=== PATIENT | male | born 1990 | race Two or more races ===

== ENCOUNTER 2024-04-19 13:25 | Emergency (ER) | payer MEDICAID, SELFPAY ==
[2024-04-19 13:32] VITALS: BP 139/85; PULSE 100; RESP 16; TEMP 37; O2SAT 98; BMI 37.3
--- NOTE | 2024-04-19 13:37 | ED_ITS ---
HPI - General Adult General Chief complaint: Extremity Problem Stated complaint: Rt elbow swelling/pain Time Seen by Provider: 04/19/24 13:35 Source: patient Mode of arrival: ambulatory Limitations: no limitations History of Present Illness ED Provider: Reilly Yancey PA-C HPI narrative: 34 yold healthy male presents to the ED for right elbow swelling. patient denies injury. patient states has been occuring for a week. Patient states no fever, chills, nausea, vomiting, elbow stiffness, swelling, recent travel, recent surgery, or any history of any blood clots. Related Data Previous Rx's ?Medication ?Instructions ?Recorded naproxen 500 mg tablet 500 mg PO BID PRN pain 7 days #14 04/19/24 tabs prednisone 20 mg tablet 40 mg (2 x 20 mg) PO DAILY 5 days 04/19/24 #10 tabs Allergies Allergy/AdvReac Type Severity Reaction Status Date / Time No Known Allergies Allergy Verified 04/19/24 13:34 Review of Systems 2 Review of Systems: RIght elbow swelling Yes all other systems are reviewed and are negative [facility] Social History Social History Advance Directives: No Advance Directives Information Provided: Yes Physical Exam ED Vital Signs: Vital Signs - 24 hr 04/19/24 13:32 04/19/24 13:59 Temperature 98.6 F 98.6 F Pulse Rate 100 100 Respiratory Rate 16 16 Blood Pressure 139/85 139/85 Pulse Oximetry 98 98 Oxygen Delivery Method Room Air Room Air BMI result Body Mass Index 37.3 Const General: cooperative, healthy appearing, comfortable, no acute distress, well developed, alert, awake and Physically active Orientation/consciousness: patient oriented x3 HENMT Head: Yes normal to inspection, Yes No palpable skull fracture present, Yes normocephalic and Yes atraumatic Eyes General: appearance normal, both eyes and all related structures Neck Neck: Yes normal visual inspection, Yes full ROM, Yes no lymphadenopathy, Yes no meningeal signs, Yes trachea midline, Yes supple, No anterior neck swelling and No tender Chest Chest palpation & inspection: normal inspection of the chest and normal palpation of entire chest wall Resp Effort & Inspection: normal respiratory effort and able to speak in complete sentences Auscultation: clear to auscultation bilaterally Cardio Jugular venous distension: no JVD Heart sounds: S1 normal heart sound present and S2 normal heart sound present GI Inspection: Yes normal to inspection and No abdominal wall ecchymosis Palpation (GI): Soft to palpation, not firm, nontender, no guarding and not rigid General: No CVA tenderness and Yes no CVA tenderness Back/Spine/Pelvis Back: no CVA tenderness, No CVA tenderness and No back tenderness Skin General skin exam: no rashes or lesions noted, elasticity normal and turgor normal Neuro General: patient oriented x3, gait normal, tone normal, moves all extremities, Normal light touch and pain sensation, no meningeal signs, no focal motor deficits, CN's II-XI intact bilaterally and normal sensation to monofilament Extrem General: Yes normal to inspection, Yes full ROM and Yes capillary refill normal Elbow/forearm/wrist images: 2 1. positive for swollen lump that is fluid filled without any redness, warmth, coldness, deformity, or tenderness. negative for elbow stiffness. Rest of extremity normal. motor, neuro, or vascular exam is intact. Psych Appearance: grossly normal, well kempt and not disheveled Medical Decision Making Medical Decision Making MDM Narrative: 34 yold male presents to the ED for right elbow swelling without any trauma. Patient denies any fever, chills, arm swelling, chest pain, shortness of breath, bluish discoloration, redness. Physical exam negative for signs of DVT, septic joint, gout, fracture, DVT, cellulitis, compartment syndrome, or arterial occlusion. Patient is educated on cold warm compression on area, resting, compression sleeve Jonnathan bandage, and naproxen steroid use. Patient informed to follow up primary care provider Differential Diagnosis Differential Diagnoses: The differential diagnosis associated with the presentation includes (Gout, septic joint, fracture, bursitis) Admission/Observation Consideration of admission/observation: Escalation of care including admission/observation considered Independent Historian Clinical information obtained from an independent historian. History obtained from or confirmed by: Spouse () and Other (patient) External Record Review External record reviewed: Other (prior viists) Discharge Plan Discharge Clinical Impression: Bursitis Patient Disposition: Home, Self-Care Instructions: Elbow Bursitis (ED) Additional Instructions: Return to the ED immediately for elbow stiffness, increased swelling, redness, warmth, pus discharge, foul odor, whole extremity swelling, red streaks, bluish black discoloration, hotness, coldness, chest pain, shortness of breath, or any other concerning symptoms. Recommend follow-up with primary care provider. Alternate between warm and cool compress of elbow. Recommend using Jonnathan bandage and elbow/arm sleeve with padding/cushion. Prescriptions: New naproxen 500 mg tablet 500 mg PO BID PRN (Reason: pain) 7 Days Qty: 14 0RF prednisone 20 mg tablet 40 mg PO DAILY 5 Days Qty: 10 0RF Referrals: [facility] [place] [facility] [Provider Group] (right elbow burisitis) Stand Alone Forms: Work/School Release Interventions: ED Discharge Assessment Last Done: 04/19/24 13:59 Discharge Date/Time: 04/19/24 14:01 Print Language: Nicaraguan
[2024-04-19 13:59] VITALS: BP 139/85; PULSE 100; RESP 16; TEMP 37; O2SAT 98
== END 2024-04-19 14:01 | disposition home or self-care (01) ==
PROVIDERS: Emergency Provider Emergency Medicine
DX: M70.31 Other bursitis of elbow, right elbow (principal)
CPT/HCPCS: 99282

== ENCOUNTER 2024-05-22 08:18 | Outpatient (AMB) | payer MEDICAID, SELFPAY ==
--- NOTE | 2024-05-22 08:19 | A.OFFVIS_ITS ---
Vital Signs 05/22/24 08:20 Height 5 ft 10 in Weight 260 lb BMI 37.3 Intake Visit Reasons: [employer]- ED f/u Right Elbow Bursitis Intake Note: Rose is a 34 year old right hand dominant male who presents today as a new patient for an ED follow up for his right elbow pain and swelling. Patient was given Naproxen for the symtoms. Allergies No Known Allergies Allergy (Verified 05/22/24 08:23) HPI HPI [employer]- ED f/u Right Elbow Bursitis: Details: Patient is a 34-year-old male who presents for evaluation of right elbow swelling, ongoing for approximately 1-2 months. The patient states that no particular trauma or incident started this swelling. The patient states that the swelling is painless, but that it feels like there is a water balloon attached to his elbow. Patient denies any redness, pain, or burning on the outer aspect of the right elbow. The patient does state that the swelling goes up and down depending on the day. No numbness or tingling in the right upper extremity. No other acute complaints or concerns at this time. Physical Exam Vital Signs: BMI result Body Mass Index 37.3 Extrem Other: Patient is alert, oriented, and in no acute distress. Neuro: Normal sensation of the tips of all digits of the right hand at this time Vascular: Cap refill brisk Pain: No tenderness to palpation of the radial head, medial epicondyle, lateral epicondyle, or in the area of swelling over the olecranon process of the right elbow ROM: Patient is able to flex and extend the right elbow fully without difficulty Pronation and supination of the right wrist full and intact Skin: No lacerations or abrasions. General: There is noted to be a large, fluid-filled area of swelling over the right olecranon process No warmth palpation No ecchymosis, erythema, or evidence of infection. Psych: Appears grossly normal Affect normal Attitude cooperative Assessment & Plan Assessment & Plan (1) Olecranon bursitis of right elbow: Code(s): M70.21 - Olecranon bursitis, right elbow Category: Medical Plan 1. Olecranon bursitis of right elbow Patient is educated about this condition and the typical recovery course Patient initially states that he would like to have surgery or a drainage of a swelling on his right elbow, but after education of the potential effects of this, he understands why this is not an option for him at this time At this time, patient was provided with an Jonnathan bandage to apply gentle compression to the right elbow in order to encourage resorption of the extra fluid in the right olecranon bursa Patient understands this and is amenable to this plan Patient will follow-up as needed with any acute concerns Coding Level of Care Code New Pt Level 3 (55168) Diagnoses Olecranon bursitis of right elbow M70.21
[2024-05-22 08:20] VITALS: BMI 37.3
== END 2024-05-22 08:33 | disposition home or self-care (01) ==
DX: M70.21 Olecranon bursitis, right elbow (principal)
CPT/HCPCS: 99203

== ENCOUNTER → 2024-05-22 08:18 | Outpatient (BNVA) | payer MEDICAID, SELFPAY | DX: M70.21 Olecranon bursitis, right elbow (principal) | CPT/HCPCS: 99202 ==

== ENCOUNTER 2025-01-06 22:24 | Emergency (ER) | payer MEDICAID, SELFPAY ==
[2025-01-06 22:25] VITALS: BP 122/73; PULSE 87; RESP 16; TEMP 36.7; O2SAT 95; BMI 36.3
--- NOTE | 2025-01-07 00:51 | ED.GENADULT ---
HPI - General Adult General Chief complaint: Extremity Problem Stated complaint: Lt toe pain. ?infection Time Seen by Provider: 01/07/25 00:26 Source: patient Mode of arrival: ambulatory Limitations: no limitations History of Present Illness ED Provider: mady sellers np HPI narrative: Patient is a 34-year-old male who presents emergency department for evaluation. He reports over the past few days he has been experiencing redness and swelling surrounding the nail of the left 3rd toe. He denies any known injury to the area. Yesterday his brother attempted to drain this with a needle. He reports that decreased in size and somewhat help the pain but the redness continues. Reports last tetanus vaccine was within the past 5 years. He denies fevers or chills. Denies history of similar in the past. He is not a diabetic Related Data Previous Rx's ?Medication ?Instructions ?Recorded naproxen 500 mg tablet 500 mg PO BID PRN pain 7 days #14 04/19/24 tabs prednisone 20 mg tablet 40 mg (2 x 20 mg) PO DAILY 5 days 04/19/24 #10 tabs cephalexin 500 mg capsule 500 mg PO QID #28 caps 01/07/25 Allergies Allergy/AdvReac Type Severity Reaction Status Date / Time No Known Allergies Allergy Verified 01/06/25 22:27 Review of Systems Review of Systems: Yes all other systems are reviewed and are negative PMFSH Past Medical History Attestation statement: The following information was validated with the patient. Source: old records reviewed Physical Exam ED Vital Signs: Vital Signs - 24 hr 01/06/25 22:25 Temperature 98.1 F Pulse Rate 87 Respiratory Rate 16 Blood Pressure 122/73 Pulse Oximetry 95 Oxygen Delivery Method Room Air BMI result Body Mass Index 36.3 Appearance: Alert.?Oriented to person, place and time. No acute distress.?Normal affect. CVS: Heart sounds normal. Normal heart rate and rhythm.? Pulses normal.?? Respiratory: No respiratory distress.? Lung sounds clear to auscultation bilaterally?? Skin: Skin warm and dry.? Normal skin color.? Paronychia involving the left 3rd toe, no abscess Extremities: No lower extremity edema.? Neuro: Moves all extremities spontaneously. Sensation intact bilaterally. Ambulates with normal steady gait. Medical Decision Making Medical Decision Making [facility] Narrative: Patient is a 34-year-old male who presents emergency department for evaluation of redness pain and swelling to the left 3rd toe as per HPI. On examination has paronychia without abscess. No signs of systemic toxicity. Placing on a course of cephalexin, given strict return precautions and conservative treatment, outpatient follow-up with primary care provider. All questions answered. Stable for discharge Differential Diagnosis Differential Diagnoses: The differential diagnosis associated with the presentation includes (Paronychia, no abscess, not consistent with felon, herpetic wen) Independent Historian Clinical information obtained from an independent historian. History obtained from or confirmed by: Spouse External Record Review External record reviewed: Outpatient record Prescription Management I considered prescription management with: Pain Medication (Acetaminophen/ibuprofen) and Antibiotic Discharge Plan Discharge Clinical Impression: Paronychia of toe of left foot Patient Disposition: Home, Self-Care Instructions: Paronychia (ED) Additional Instructions: Soak the foot in warm soapy water at least twice daily for 10-15 minutes. Gently massage the area afterwards. If you notice any pus-like buildup, this may need to be drained again. I am sending a prescription for an antibiotic to your pharmacy to cover the infection. Please follow-up with your primary care doctor. Return back to emergency department any new or worsening symptoms or concerns which include but it is not limited to severe worsening pain, redness, swelling, fevers, chills Prescriptions: New cephalexin 500 mg capsule 500 mg PO QID Qty: 28 0RF No Action naproxen 500 mg tablet 500 mg PO BID PRN (Reason: pain) 7 Days Qty: 14 0RF prednisone 20 mg tablet 40 mg PO DAILY 5 Days Qty: 10 0RF Referrals: Physician,Unknown J [Primary Care Provider] - Print Language: Kinyarwanda
== END 2025-01-07 01:13 | disposition home or self-care (01) ==
PROVIDERS: Emergency Provider Emergency Medicine
DX: L03.032 Cellulitis of left toe (principal)
CPT/HCPCS: 99281; 99283